=== PATIENT | female | born 1945 | race Caucasian/White ===

== ENCOUNTER 2016-06-09 16:42 | Emergency (ER) | payer OTHER, MEDICARE ==
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
[2016-06-09 20:54] VITALS: BP 127/68
== END 2016-06-09 20:54 | disposition home or self-care (01) ==
LOC: ER 16:42
DX: S93.402A Sprain of unspecified ligament of left ankle, initial encounter (principal); S16.1XXA Strain of muscle, fascia and tendon at neck level, initial encounter; T14.8 Other injury of unspecified body region; V49.50XA Passenger injured in collision with unspecified motor vehicles in traffic accident, initial encounter; M54.2 Cervicalgia; M25.512 Pain in left shoulder; R68.84 Jaw pain; I10 Essential (primary) hypertension; Z85.07 Personal history of malignant neoplasm of pancreas
CPT/HCPCS: 99284; 73610; 73000; 73630; 72125; L0120